=== PATIENT | male | born 1990 | race Caucasian/White ===

== ENCOUNTER 2019-12-22 18:26 | Outpatient (REF) | payer OTHER, SELFPAY | END 2019-12-22 18:27 | disposition home or self-care (01) | LOC: HO.LAB 18:26 | PROVIDERS: Visit Provider Internal Medicine | DX: Z20.828 Contact with and (suspected) exposure to other viral communicable diseases (principal) | CPT/HCPCS: 87635 ==

== ENCOUNTER 2020-01-06 14:04 | Outpatient (REF) | payer OTHER, SELFPAY | END 2020-01-06 14:05 | disposition home or self-care (01) | LOC: HO.LAB 14:04 | PROVIDERS: Visit Provider Internal Medicine | DX: Z20.828 Contact with and (suspected) exposure to other viral communicable diseases (principal) | CPT/HCPCS: 87635 ==

== ENCOUNTER 2020-05-17 12:34 | Emergency (ER) | payer OTHER, SELFPAY ==
[2020-05-17 12:59] VITALS: BP 148/81; PULSE 63; RESP 18; TEMP 36.3; O2SAT 100; BMI 21.4
--- NOTE | 2020-05-17 14:32 | ED.MEDCLEAR ---
HPI - Medical Clearance General Chief complaint: Medical Clearance Stated complaint: sick yesterday,needs work note Time Seen by Provider: 05/17/20 14:19 Source: patient Mode of arrival: ambulatory History of Present Illness HPI Narrative: 39-year-old male with no significant past medical history presenting to the ED requesting work note to return to work dandre s/p calling on a work yesterday after eating something bad. States ate some bad [employer] [place] from [place] yesterday which did not agree with him. Denies symptoms at present. Denies fever, chills, nausea/vomiting, diarrhea, exposure to COVID-19, cough complaint: medical clearance requested Related Information Allergies Allergy/AdvReac Type Severity Reaction Status Date / Time No Known Allergies Allergy Unverified 12/02/19 16:03 Review of Systems Review of Systems: Constitutional: No Fever, No Chills Cardiovascular: No Chest Pain, No SOB Respiratory: No Cough, No Wheezing Gastrointestinal: No Nausea, No Vomiting, No Diarrhea, No Constipation, No Abdominal pain Musculoskeletal: No joint pain, No Myalgias, No Joint Swelling Skin: No Skin Lesions, No rash Yes all other systems are reviewed and are negative [facility] Past Medical History Attestation statement: The following information was validated with the patient. Social History Social History Advance Directives: No Advance Directives Information Provided: No Physical Exam Vital Signs: Vital Signs: Last Vital Signs Temp 97.4 F 05/17/20 12:59 Pulse 63 05/17/20 12:59 Resp 18 05/17/20 12:59 BP 148/81 H 05/17/20 12:59 Pulse Ox 100 05/17/20 12:59 Body Mass Index 21.4 Const: General: cooperative, healthy appearing, comfortable, no acute distress and well developed Orientation/consciousness: patient oriented x3 Limitations: no limitations HENMT: Head: Yes normal to inspection Ears: hearing grossly normal bilaterally General nose exam: Normal external nose present Face and sinus: Yes normal facial exam Eyes: General: appearance normal, both eyes and all related structures EOM: EOMs intact bilaterally Neck: Neck: Yes normal visual inspection Resp: Effort & Inspection: normal respiratory effort Cardio: Rate: regular rate Skin: Rashes: no rashes Wounds: no wounds Neuro: General: patient oriented x3 Gait exam (Neuro): Normal gait present Extrem: General: Yes normal to inspection Discharge Plan Discharge Clinical Impression: Well adult health check Patient Disposition: Home, Self-Care Instructions: Food Poisoning (ED) Referrals: Physician,None [Primary Care Provider] - 2 days Stand Alone Forms: Work/School Release
== END 2020-05-17 14:46 | disposition home or self-care (01) ==
PROVIDERS: Emergency Provider Emergency Medicine
DX: Z02.79 Encounter for issue of other medical certificate (principal)
CPT/HCPCS: 99283